=== PATIENT | female | born 1990 | race Caucasian/White ===

== ENCOUNTER 2016-07-03 08:00 | Inpatient (IN) ==
[2016-07-03] MEDS ORDERED: Famotidine 20 MG/2 ML VIAL IVP PRN (08:09)
[2016-07-03] MEDS ORDERED: Naloxone 0.4 MG/ML INJ IVP PRN ×2 (08:09→21:39)
[2016-07-03] MEDS ORDERED: Metoclopramide 10 MG/2 ML VIAL IVP PRN (08:09)
[2016-07-03] MEDS ORDERED: miSOPROStol 25 MCG TABLET VG PRN (08:09)
[2016-07-03] MEDS ORDERED: Ringers Solution, Lactated 1,000 ML IVC SCH (08:15)
--- NOTE | 2016-07-03 09:18 | OB/GYN History & Physical ---
Date of Encounter: 07/03/16 Time of Encounter: 09:15 Assessment and Plan (1) and not yet delivered in third trimester Current visit: Yes Status: Acute (2) 39 weeks gestation of Current visit: Yes Status: Acute (3) Polyhydramnios affecting in third trimester Current visit: Yes Status: Acute (4) Elective induction of labor planned Current visit: Yes Status: Acute We will induce patient with a Betancur catheter and Cytotec and plan is to anticipate vaginal delivery History of Present Illness HPI: Ms. Cannon is a 25 year old female 2 para 1 at 39-3/7 weeks by a 10-3/7 week ultrasound who presented for an induction of labor secondary term with favorable cervix. She has a history of polyhydramnios patient was wanted 2 cm in the office on last examination. course has been unremarkable is not complaining of any leaking of fluid K contractions no vaginal bleeding or discharge. GBS is negative she is Rh+ Past Med Surg Social Fam HX - Past Medical History Medical history: migraine Psychiatric history: no psych history - Past Surgical History Surgical History: no surgical history - Social History Smoking Status: Never smoker Smokeless Tobacco Status: No Alcohol use: none Drug use: none Occupational status: employed Current living situation: Home - Independent Activity Level: Independent ambulation Recent Out of Country Travel Within the Last 8 Weeks: No Exposure or Possible Exposure to Illness During Travel: No - Family History Mother Living Status: Still Living Hx Family Cardiac Disorders: No Hx Family Respiratory Disorders: Yes (asthma) Hx Family Cancer: No Hx Family GI Disorders: No Hx Family Endocrine Disorder: No Hx Family Neuromuscular Disorders: No Hx Family Neurologic Disorders: No Hx Family HEENT Disorders: No Hx Family Autoimmune Disorders: No - Additional Family History Additional family history: Family history noncontributory at this time Obstetrical History - Pregnancies : 2 Para: 1 Term: 1 : 0 Ab's: 0 Livin Medications and Allergies Vit/FA 1 tab PO DAILY 03/07/15 [History] Allergies No Known Allergies Allergy (Verified 07/03/16 08:29) Review of System OB All systems PM: reviewed and no additional remarkable complaints except as stated Exam - Constitutional Constitutional: well developed, no acute distress, average body habitus, moderate distress - HEENT HEENT: PERRL, Mucus Membranes Moist - Neck Neck exam: full ROM - Lungs Respiratory exam: CTAB - Cardiovascular Cardiovascular exam: RRR - Abdomen Abdomen: Present: gravid - Cervix Dilation: 2 Effacement: 80 Station: -3 (Betancur catheter placed within side the cervix 30 mL balloon inflated. During the insertion she was artificially ruptured and clear fluid we will to by mouth Cytotec versus vaginal at this time) Results All other labs normal. - VTE Reasons for not Prescribing Prophylaxis: Treatment not Indicated - Low risk for VTE
[2016-07-03] MEDS ORDERED: miSOPROStol 100 MCG TABLET PO ONE (09:40)
[2016-07-03 09:43] LABS: Basophils % 0.3 %; Eosinophils # 0.1 K/mcL (0.0-0.6); Eosinophils % 0.7 %; Hematocrit 29.5 % (35.3-44.9); Hemoglobin 9.9 g/dL (11.5-15.4); Immature Granulocytes % 0.7 % (0-4); Lymphocytes # 1.6 K/mcL (0.6-4.6); Lymphocytes % 24.1 %; Mean Corpuscular HGB Conc 33.6 g/dL (31.6-35.5); Mean Corpuscular Hemoglobin 29.1 pg (28.0-33.3); Mean Corpuscular Volume 86.8 fL (83.0-100.0); Mean Platelet Volume 10.5 fL (9.4-12.4); Monocytes # 0.5 K/mcL (0.0-1.3); Monocytes % 7.3 %; Neutrophils # 4.5 K/mcL (1.6-8.9); Platelet Count 216 K/mcL (140-400); Red Cell Distribution Width 13.1 % (11.5-14.5); Segmented Neutrophils % 66.9 %
--- NOTE | 2016-07-03 14:19 | OB Labor Progress Note ---
Date of Encounter: 07/03/16 Time of Encounter: 14:15 Labor Progress Note - Subjective Subjective: Patient still tolerating the contractions not that uncomfortable at this time. - Cervix Cervix: 4/90/0 - Heart Tones Heart Tones: heart tones 140s reactive - [place]: Contractions every 4 minutes - Plan Plan: Continue current care and anticipate vaginal delivery
[2016-07-03] MEDS ORDERED: EPHEDrine 50 MG/ML VIAL IVP PRN (16:55)
[2016-07-03] MEDS ORDERED: *HR* FentaNYL (PF) 100 MCG/2 ML VIAL EP ONE (16:55)
[2016-07-03] MEDS ORDERED: Ringers Solution, Lactated 500 ML IVC ONE (16:55)
[2016-07-03] MEDS ORDERED: *HR* Ropivacaine/PF 0.2% 10 ML AMPUL EP ONE (16:55)
--- NOTE | 2016-07-03 16:58 | Anesthesia Evaluation PreOp ---
Date of Encounter: 07/03/16 Time of Encounter: 16:55 - Past History Planned Operation: Labor Epidural Cardiac History: Denies any Significant Hx Pulmonary History: Denies Any Significant HX HARD METALS HAND ENGRAVER History: Denies Any Significant HX Other Medical History: Denies Any Significant HX Alcohol Use: none Drug use: none Medications and Allergies Vit/FA 1 tab PO DAILY 03/07/15 [History] Allergies No Known Allergies Allergy (Verified 07/03/16 08:29) - Meds/Allergy Pre-op Review Medications Reviewed: Yes Allergies Reviewed: Yes Beta Blockers on Current Med List: No Anesthesia Results - Labs 07/03/16 09:14 Anesthesia Exam Height: 1.65m Weight: 73.9kg NPO (# of Hours): >4hr solids Pain Scale: 7 Pain Scale Used: Numeric (1 - 10) - HEENT Pupil (Motor): Pupils equal Mallampati: I Teeth: Normal Oral Opening: Greater than 3 - HARD METALS HAND ENGRAVER LOC: Oriented HARD METALS HAND ENGRAVER Motor: Normal RUE, Normal LUE, Normal RLE, Normal LLE, Normal Face HARD METALS HAND ENGRAVER Sensory: Normal: RUE, LUE, RLE, LLE, Face - Cardiac Rhythm: Regular Murmur: None JVD: No Carotid Bruit: No - Pulmonary Breath Sounds: bilateral Clear Respiratory Effort: Symmetrical Anesthesia Assess/Plan ASA Score: 2 Modified Anthony Scale for Level of Consciousness: Cooperative, oriented, and tranquil Anesthetic Plan: Regional Autologous Blood: Yes Monitoring Plan: Standard Monitors Recovery Plan: Other
[2016-07-03] MEDS ORDERED: *HR* FentaNYL (PF) 100 MCG/2 ML VIAL ONE ×2 (16:59→21:05)
[2016-07-03] MEDS ORDERED: Epidural Premix (fent/bupiv) 110 ML EP ONE (16:59)
[2016-07-03] MEDS ORDERED: *HR* Ropivacaine/PF 0.2% 10 ML AMPUL ONE (16:59)
[2016-07-03] MEDS ORDERED: Epidural Premix (fent/bupiv) 110 ML EP SCH (17:00)
--- NOTE | 2016-07-03 17:29 | Anesthesia Procedures ---
Date of Encounter: 07/03/16 Time of Encounter: 17:05 Procedures: Anesthesia - Epidural/Spinal Patient ID/Chart reviewed: Yes Patient examined: Yes OB Eval: : 2 OB Eval: Hx Para: 1 OB Eval: Contractions: Non-stressed pattern Consent Obtained: Yes Supplemental Oxygen: None/Room Air Site Prep: Aseptic Technique, Sterile prep and drape, 0.5% Chlorhexidine/Alcohol Patient position: upright Local Anesthetic: Lidocaine 1% Amount of Local Anesthetic used: 2 Touhy Needle Gauge: 18 Touhy Needle Depth (cm): 7 Catheter Depth at Skin (cm): 12 Test Dose (1.5% Lido + Epi): Volume given (mls): 4 Test Dose Result: Negative Loading Dose: Fentanyl (mcg): 100 Loading Dose: Other: Ropivacaine 0.2% 10mL Loading Dose Administered: Thru Catheter Infusion Med: 0.125% Bupivacaine w/ 2 mcg/ml Fentanyl Infusion Rate (mls/hr): 14 (Bolus 4mL q15min; max 3/hr) Catheter Secured in Place: Tegaderm, Tape Interspace Used: L2-L3 Loss of Resistance (DHEERAJ): Yes Blood: No CSF: No Paresthesia: No Procedure: x1 attempt. Patient tolerated well and reported increased comfort within 2 contractions of bolus. Vitals + FHT's: VSS and FHR stable throughout. See nursing documentation.
[2016-07-03] MEDS ORDERED: Oxytocin 20 units/ LR 1000 mL 20 UNIT/1,000 ML BAG IVC ONE (17:35)
--- NOTE | 2016-07-03 18:04 | OB Labor Progress Note ---
Date of Encounter: 07/03/16 Time of Encounter: 18:00 Labor Progress Note - Subjective Subjective: Patient is comfortable after her epidural not feeling any discomfort at this time - Cervix Cervix: 4-5/80/-2 - Heart Tones Heart Tones: heart tones 140s reactive - [place]: IUPC placed contractions are every 2-3 minutes irregular - Plan Plan: We will augment with Pitocin and anticipate vaginal delivery
[2016-07-03] MEDS ORDERED: Oxytocin 20 units/ LR 1000 mL 20 UNIT/1,000 ML BAG IVC SCH (18:10)
[2016-07-03] MEDS ORDERED: 0.9 % Sodium Chloride 1,000 ML ONE (19:32)
[2016-07-03] MEDS ORDERED: *HR* Oxytocin 10 UNIT/ML VIAL IM ONE ×2 (21:04→22:03)
[2016-07-03] MEDS ORDERED: Chloroprocaine/PF 20 ML VIAL INFILT ONE (21:04)
[2016-07-03] MEDS ORDERED: ceFAZolin 2,000 MG in D5% in Water (Mini-Bag+) 100 ML IVPB ONE (21:06)
[2016-07-03] MEDS ORDERED: *HR* Morphine Sulfate/PF 5 MG/10 ML AMPUL ONE (21:06)
[2016-07-03] MEDS ORDERED: *HR* Promethazine 25 MG/ML VIAL IVP PRN (21:39)
[2016-07-03] MEDS ORDERED: Ondansetron 4 MG/2 ML VIAL IVP PRN (21:39)
[2016-07-03] MEDS ORDERED: *HR* HYDROmorphone (PF) 1 MG/ML SYRINGE IVP PRN (21:39)
[2016-07-03] MEDS ORDERED: Ringers Solution, Lactated 1,000 ML ONE (22:03)
--- NOTE | 2016-07-03 22:16 | OB/GYN Procedure Note ---
Section - Date of procedure: 07/03/16 Preop diagnosis: other (Intrauterine 39-3/7 weeks, category 2 strip with deep variable decelerations) Post-op diagnosis: same Procedure: primary low transverse Surgeon: Adalberto Andujar Estimated blood loss (cc): 350 Pinsetter Mechanic Automatic: Chepe Talbot ([id number]) Anesthesiologist: Dagoberto Nugent Puff Iron Operator: Orville Evans Anesthesia Type: Epidural section complications: none Disposition: L&D Recovery Room - (s) Infant A Delivery Date: 07/03/16 Infant Delivery Time: 21:31 Presentation: vertex Position: MARIE Route of delivery: other ( section) Gender: Male Viability: Viable Pounds: 7 Ounces: 3 Gram Weight: 3.25 kg at 1 minute: 8 at 5 minutes: 9 Shoulder Dystocia: not encountered Placenta: complete extraction - Narrative Narrative: Patient is a 25-year-old 2 para 1 at 39-3/7 weeks who presented for induction of labor secondary to with favorable cervix. Patient had a history of polyhydramnios recommended we use a Betancur catheter and Cytotec for the induction. During insertion of the Betancur catheter we artificially ruptured her accidentally. Large amounts of clear fluid was identified but left the catheter in place and used by mouth Cytotec. Catheter fell out within an hour patient was linda irregularly and she was augmented with Pitocin. Patient started having deep variable decelerations the Pitocin was turned off and an amnioinfusion was started. Patient got to approximate 5-6 cm and she continued to have very deep decelerations down into the 50s and 60s and baseline dropped to 100s. Because she was still only 5-6 cm section was called. Procedure: Patient was taken the operating room where epidural anesthesia was found be adequate. She was placed in the dorsal supine position with leftward tilt prepped and draped in usual fashion. A timeout was then obtained. A Pfannenstiel incision was then made and the incision was then carried down through the underlying tissue to the fascia was identified. The fascia was nicked in the midline and extended laterally with the Muro scissors. The superior and inferior edges of the fascia grasped tented up and dissected off the rectus muscles. Rectus muscles were then in midline parietal peritoneum was identified tented up and entered sharply. This was extended superiorly and inferiorly with Metzenbaum scissors. Bladder blade was inserted the vesicouterine peritoneum was identified tented up and extended laterally. The bladder flap was created digitally and the lower uterine segment was incised with a scalpel extended laterally with digital manipulation. The 's head was brought out through the incision there was no nuchal cord noted. As we are delivering the shoulders it was noted that the cord was laying right upper against the left arm. The was then fully delivered and the cord was clamped and cut and was handed off to waiting pediatric team. Cord blood was not needed at this time the placenta was manually removed then the uterus was exteriorized and cleaned of all clots and debris. The lower uterine segment was then closed with a 0 Vicryl in a running locking stitch by a 2 layer closure. Good hemostasis was noted the uterus was returned to the abdomen the gutters were cleaned of all clots and debris and copiously irrigated. The fascia was then closed using a #1 stratafix in a running stitch and the skin was closed using a 4-0 Vicryl in a subcuticular manner. All needles laps and sponge counts were correct 3 And she did receive preoperative antibiotics. She was then taken to recovery room and she will be observed 2 hours before being taken the floor.
--- NOTE | 2016-07-04 00:01 | Anesthesia Evaluation Post Op ---
Date of Encounter: 07/04/16 Time of Encounter: 23:55 - Lungs Lungs: Clear Ascult./Percussion - Airway Airway: Non-obstructed - Cardiovascular Regular Rate - Mental Status Mental Status: Alert & Oriented, Answers Appropriately - Pain Pain Scale: 3 Pain Scale used: Numeric (1 - 10) - Nausea Vomiting Nausea Vomiting: Not Present - Hydration Hydration: Tolerates oral liquids - Discharge PostOp Status: Transfer Patient to floor Attestation: Patient alert and communicating. VSS. Plaza4. Meets criteria for floor transfer.
[2016-07-04] MEDS ORDERED: Metoclopramide 10 MG/2 ML VIAL IVP PRN (00:10)
[2016-07-04] MEDS ORDERED: Ringers Solution, Lactated 1,000 ML IVC SCH (00:10)
[2016-07-04] MEDS ORDERED: *HR* HYDROmorphone (PF) 1 MG/ML SYRINGE IVP PRN (00:10)
[2016-07-04] MEDS ORDERED: Simethicone 80 MG TAB.CHEW PO PRN (00:10)
[2016-07-04] MEDS ORDERED: Sennosides 8.6 MG TABLET PO PRN (00:10)
[2016-07-04] MEDS ORDERED: *HR* Morphine 2 MG/ML SYRINGE IVP PRN (00:10)
[2016-07-04] MEDS ORDERED: Ondansetron 4 MG/2 ML VIAL IVP PRN (00:10)
[2016-07-04] MEDS ORDERED: Oxytocin 20 units/ LR 1000 mL 20 UNIT/1,000 ML BAG IV SCH ×2 (00:10)
[2016-07-04 05:41] LABS: Basophils % 0.2 %; Eosinophils % 0.1 %; Hematocrit 30.1 % (35.3-44.9); Hemoglobin 9.8 g/dL (11.5-15.4); Immature Granulocytes % 0.6 % (0-4); Lymphocytes # 1.4 K/mcL (0.6-4.6); Lymphocytes % 12.3 %; Mean Corpuscular HGB Conc 32.6 g/dL (31.6-35.5); Mean Corpuscular Hemoglobin 27.8 pg (28.0-33.3); Mean Corpuscular Volume 85.5 fL (83.0-100.0); Mean Platelet Volume 10.5 fL (9.4-12.4); Monocytes # 0.7 K/mcL (0.0-1.3); Monocytes % 5.6 %; Neutrophils # 9.5 K/mcL (1.6-8.9); Platelet Count 188 K/mcL (140-400); Red Blood Count 3.52 M/mcL (3.82-4.97); Red Cell Distribution Width 12.9 % (11.5-14.5); Segmented Neutrophils % 81.2 %
--- NOTE | 2016-07-04 06:24 | OB/GYN Progress Note ---
Date of Encounter: 07/04/16 Time of Encounter: 06:21 - Assessment and Plan (1) delivery delivered Current Visit: Yes Status: Acute Continue current management plan. Plan on DC tomorrow if meeting milestones. Subjective - Subjective Interval history: Pt states feeling well.Pain well managed on po medication. Patient reports: pain well controlled : doing well, nursing well Objective - Vital Signs Latest vital signs: Vital Signs Temp Pulse Resp BP Pulse Ox 07/04/16 04:08 98.7 F 96 18 118/74 98 07/04/16 02:15 98.1 F 84 18 124/82 99 07/04/16 01:15 98.7 F 93 16 126/81 97 07/04/16 00:44 98.3 F 89 16 129/87 98 07/04/16 00:15 98.2 F 87 18 123/74 97 Intake and Output 07/03/16 07/03/16 07/04/16 15:59 23:59 07:59 Intake Total 2300 / 2300 Output Total 450 / 450 400 / 400 Balance 1850 / 1850 -400 / -400 Intake: Intake, Autotransfusion 2300 / 2300 Amount Output: Estimated Blood Loss 350 / 350 Catheter 100 / 100 400 / 400 Other: Weight 73.936 kg 72.2 kg Patient Weight 07/04/16 23:59 Weight 72.2 kg - Exam Lungs: bilateral: normal Chest: Normal S1, Normal S2 Extremities: Present: normal Abdomen: Present: normal appearance, soft Incision: Present: dressed Uterus: Present: normal, firm - Labs Labs: Laboratory Results - last 24 hr 07/03/16 07/03/16 07/04/16 08:38 09:14 05:03 WBC 6.7 11.7 H D RBC 3.40 L 3.52 L Hgb 9.9 L 9.8 L Hct 29.5 L 30.1 L MCV 86.8 85.5 MCH 29.1 27.8 L MCHC 33.6 32.6 RDW 13.1 12.9 Plt Count 216 188 MPV 10.5 10.5 Immature Gran % 0.7 0.6 Seg Neutrophils % 66.9 81.2 Lymphocytes % 24.1 12.3 Monocytes % 7.3 5.6 Eosinophils % 0.7 0.1 Basophils % 0.3 0.2 Neutrophils # 4.5 9.5 H Lymphocytes # 1.6 1.4 Monocytes # 0.5 0.7 Eosinophils # 0.1 0.0 Basophils # 0.0 0.0 Immature Plt Fraction 3.0 Specimen Rejected Clotted
[2016-07-04] MEDS ORDERED: NON-FORMULARY MEDICATION 1 EACH EACH (Prenatal Vit/Fa 1 TAB) PO SCH (09:00)
[2016-07-04] MEDS: *HR* OxyCODONE/APAP 5/325 TABLET PO PRN ×2 (10:34→22:01)
[2016-07-04] MEDS: Prenatal Vit/FA 1 EACH TABLET PO SCH (10:34)
[2016-07-04] MEDS: Ibuprofen 600 MG TABLET PO PRN ×2 (14:59→23:15)
[2016-07-05] MEDS ORDERED: *HR* OxyCODONE/APAP 5/325 TABLET PO ONE (00:54)
[2016-07-05] MEDS: Ibuprofen 600 MG TABLET PO PRN (05:26)
--- NOTE | 2016-07-05 09:11 | Discharge Summary ---
Date of Encounter: 07/05/16 Time of Encounter: 09:09 - Discharge Diagnosis (1) delivery delivered Priority: Primary Status: Acute Comments: Pt states feeling okay this morning. Pain managed with po pain medication. In agreement with discharge today. +flatus -BM (2) Gestational hypertension w/o significant proteinuria in 3rd trimester Priority: Secondary Status: Acute - Discharge Medications Prescriptions: Ibuprofen [Motrin] 600 mg PO Q6HR PRN #60 tablet PRN Reason: Cramping OxyCODONE/APAP 5/325 [Percocet 5/325 MG] 1 each PO Q6HR PRN #30 tablet PRN Reason: Moderate pain 4-6 Docusate [Colace] 100 mg PO BID #60 capsule Ferrous Sulfate 325 mg PO DAILY #60 tablet Home Medications: Vit/FA 1 tab PO DAILY 03/07/15 [History] Docusate [Colace] 100 mg PO BID #60 capsule 07/05/16 [Rx] Ferrous Sulfate 325 mg PO DAILY #60 tablet 07/05/16 [Rx] Ibuprofen [Motrin] 600 mg PO Q6HR PRN #60 tablet 07/05/16 [Rx] OxyCODONE/APAP 5/325 [Percocet 5/325 MG] 1 each PO Q6HR PRN #30 tablet 07/05/16 [Rx] Allergies/Adverse Reactions: Allergies No Known Allergies Allergy (Verified 07/03/16 08:29) Data Procedures and tests throughout hospitalization: Laboratory Tests 07/03/16 07/03/16 07/04/16 08:38 09:14 05:03 WBC 6.7 11.7 H D RBC 3.40 L 3.52 L Hgb 9.9 L 9.8 L Hct 29.5 L 30.1 L MCV 86.8 85.5 MCH 29.1 27.8 L MCHC 33.6 32.6 RDW 13.1 12.9 Plt Count 216 188 MPV 10.5 10.5 Immature Gran % 0.7 0.6 Seg Neutrophils % 66.9 81.2 Lymphocytes % 24.1 12.3 Monocytes % 7.3 5.6 Eosinophils % 0.7 0.1 Basophils % 0.3 0.2 Neutrophils # 4.5 9.5 H Lymphocytes # 1.6 1.4 Monocytes # 0.5 0.7 Eosinophils # 0.1 0.0 Basophils # 0.0 0.0 Immature Plt Fraction 3.0 Specimen Rejected Clotted Date of admission: 07/03/16 08:08 Primary care physician: Krystle Mcbride CNP Discharging clinician: Dilma Saunders Anticipated date of discharge: 07/05/16 - Patient Status Disposition: Home, Self-Care Condition: Good Functional capacity at discharge: independent ambulation Overall status at discharge: patient is back to baseline - Discharge Instructions Follow Up With: Adalberto Andujar DO [Partnered Physician] - (July 20, 2016 @ 9:55 am) Krystle Mcbride, EMMA [Primary Care Provider] - - Diet and Activity Activity: resume usual activities as tolerated Diet: regular diet Hospital Course Reason for admission: induction of labor Delivery: section Episiotomy: none Laceration: none Other procedures: none complications: none Discharge diagnosis: IUP at term delivered [place] baby: male Hospital course: Section - Date of procedure: 07/03/16 Preop diagnosis: other (Intrauterine 39-3/7 weeks, category 2 strip with deep variable decelerations) Post-op diagnosis: same Procedure: primary low transverse Surgeon: Adalberto Andujar Estimated blood loss (cc): 350 Cook 3 Pastry: Chepe Talbot ([id number]) Anesthesiologist: Dagoberto Nugent Manager Fashion: Orville Evans Anesthesia Type: Epidural section complications: none Disposition: L&D Recovery Room - (s) Infant A Delivery Date: 07/03/16 Infant Delivery Time: 21:31 Presentation: vertex Position: MARIE Route of delivery: other ( section) Gender: Male Viability: Viable Pounds: 7 Ounces: 3 Gram Weight: 3.25 kg at 1 minute: 8 at 5 minutes: 9 Shoulder Dystocia: not encountered Placenta: complete extraction Stable in and appropriate for discharge OARRS reviewed. Time Attestation: Total time spent providing and/or coordinating discharge services: Time Spent: Less than 30 minutes - VTE Reasons for not Prescribing Prophylaxis: Treatment not Indicated - Low risk for VTE Documentation of Mechanical Device: Intermittent pneumatic compression device Exam - Constitutional Vitals: Temp Pulse Resp BP Pulse Ox 97.8 F 83 16 117/77 96 07/04/16 22:00 07/04/16 22:00 07/04/16 22:06 07/04/16 22:00 07/04/16 22:00 General appearance IM: A&O X 3, pleasant, no acute distress - Respiratory Respiratory exam: Present: CTAB - Cardiovascular Cardiovascular exam IM: Present: RRR, +S1, +S2 - GI/Abdominal Incision: normal (steristrips in place), intact - Uterine Tone: Firm - Extremities Exam Extremities exam IM: Present: normal inspection - Neurological Exam Neurological exam: oriented X3 - Psychiatric Additional comments: reoprts good mood
[2016-07-05] MEDS: Prenatal Vit/FA 1 EACH TABLET PO SCH (09:16)
[2016-07-05 09:30] VITALS: BP 118/77
[2016-07-05] MEDS: *HR* OxyCODONE/APAP 5/325 TABLET PO PRN (16:45)
== END 2016-07-05 19:15 | disposition home or self-care (01) | DRG 766 ==
LOC: 1NENULAB 08:08 → 1NENUOBS 07-04 00:10
PROVIDERS: ADMIT Obstetrics & Gynecology; ATTEND Obstetrics & Gynecology

== ENCOUNTER 2019-02-10 06:00 | Inpatient (IN) ==
[2019-02-10] MEDS ORDERED: *HR* Nalbuphine 10 MG/ML AMPUL IVP PRN (06:12)
[2019-02-10] MEDS ORDERED: Famotidine 20 MG/2 ML VIAL IVP PRN (06:12)
[2019-02-10] MEDS ORDERED: Lidocaine 1% 20 ML MDV INFILT PRN (06:12)
[2019-02-10] MEDS ORDERED: Metoclopramide 10 MG/2 ML VIAL IVP PRN (06:12)
[2019-02-10] MEDS ORDERED: Naloxone 0.4 MG/ML INJ IVP PRN (06:12)
[2019-02-10] MEDS ORDERED: Ringers Solution, Lactated 1,000 ML IVC SCH (06:15)
[2019-02-10] MEDS ORDERED: Epidural Premix (fent/bupiv) 110 ML EP SCH (06:45)
[2019-02-10 06:58] LABS: Basophils % 0.3 %; Eosinophils # 0.1 K/mcL (0.0-0.6); Eosinophils % 1.3 %; Hematocrit 30.7 % (35.3-44.9); Hemoglobin 10.1 g/dL (11.5-15.4); Immature Granulocytes % 0.6 % (0-4); Lymphocytes % 28.7 %; Mean Corpuscular HGB Conc 32.9 g/dL (31.6-35.5); Mean Corpuscular Hemoglobin 29.2 pg (28.0-33.3); Mean Corpuscular Volume 88.7 fL (83.0-100.0); Mean Platelet Volume 10.5 fL (9.4-12.4); Monocytes # 0.5 K/mcL (0.0-1.3); Monocytes % 6.8 %; Neutrophils # 4.4 K/mcL (1.6-8.9); Platelet Count 207 K/mcL (140-400); Red Blood Count 3.46 M/mcL (3.82-4.97); Red Cell Distribution Width 13.2 % (11.5-14.5); Segmented Neutrophils % 62.3 %; White Blood Count 7.1 K/mcL (4.3-11.1)
[2019-02-10] MEDS ORDERED: Oxytocin 20 units/ LR 1000 mL 20 UNIT/1,000 ML BAG IVC SCH (07:00)
[2019-02-10] MEDS ORDERED: Lidocaine -MPF 2% 5 ML VIAL ONE (07:49)
[2019-02-10] MEDS ORDERED: *HR* Phenylephrine 10 MG/ML VIAL ONE (07:49)
[2019-02-10 08:29] LABS: Amphetamine Screen,Urine Negative ng/mL (Cutoff=1000); Barbiturate Screen,Urine Negative ng/mL (Cutoff=200); Benzodiazepines Screen,Urine Negative ng/mL (Cutoff=200); Cannabinoid Screen,Urine Negative ng/mL (Cutoff = 50); Cocaine Screen,Urine Negative ng/mL (Cutoff= 300); Opiate Screen,Urine Negative ng/mL (Cutoff=300); Phencyclidine Screen,Urine Negative ng/mL (Cutoff=25)
[2019-02-10 08:57] LABS: Alanine Aminotransferase 9 Units/L (7-52); Aspartate Amino Transferase 15 Units/L (13-39); BUN/Creatinine Ratio 15 (6-26); Blood Urea Nitrogen 11 mg/dL (6-20); Lactate Dehydrogenase 196 Units/L (140-271); Uric Acid 4.3 mg/dL (2.3-7.6); eGFR For African Americans > 60 (> 60); eGFR For Non-African Americans > 60 (> 60)
[2019-02-10 09:00] LABS: Creatinine,Urine 167 mg/dL
[2019-02-10] MEDS ORDERED: *HR* FentaNYL (PF) 100 MCG/2 ML VIAL ONE ×2 (11:14→21:07)
[2019-02-10] MEDS ORDERED: Bupivacaine-MPF 0.25% 10 ML VIAL ONE ×2 (11:14→21:17)
[2019-02-10] MEDS ORDERED: Ondansetron 4 MG/2 ML VIAL ONE (21:14)
[2019-02-11] MEDS ORDERED: Acetaminophen 325 MG TABLET PO PRN (02:32)
[2019-02-11] MEDS ORDERED: Benzocaine/Menthol 56 GM AEROSOL SPRAY TP PRN (02:32)
[2019-02-11] MEDS ORDERED: Lanolin 7 G OINT...G. TP PRN (02:32)
[2019-02-11] MEDS ORDERED: Oxytocin 20 units/ LR 1000 mL 20 UNIT/1,000 ML BAG IVC SCH (02:32)
[2019-02-11] MEDS: Ibuprofen 600 MG TABLET PO PRN ×2 (05:17→20:14)
[2019-02-11 06:04] LABS: Basophils % 0.2 %; Eosinophils % 0.1 %; Hematocrit 30.7 % (35.3-44.9); Hemoglobin 10.8 g/dL (11.5-15.4); Immature Granulocytes % 0.4 % (0-4); Lymphocytes # 1.2 K/mcL (0.6-4.6); Lymphocytes % 7.7 %; Mean Corpuscular HGB Conc 35.2 g/dL (31.6-35.5); Mean Corpuscular Hemoglobin 29.4 pg (28.0-33.3); Mean Corpuscular Volume 83.7 fL (83.0-100.0); Mean Platelet Volume 10.3 fL (9.4-12.4); Monocytes # 0.7 K/mcL (0.0-1.3); Monocytes % 4.5 %; Neutrophils # 13.9 K/mcL (1.6-8.9); Platelet Count 197 K/mcL (140-400); Red Blood Count 3.67 M/mcL (3.82-4.97); Segmented Neutrophils % 87.1 %
[2019-02-11] MEDS: Prenatal Vit/FA 1 EACH TABLET PO SCH (09:07)
[2019-02-12] MEDS: Ibuprofen 600 MG TABLET PO PRN (05:38)
[2019-02-12] MEDS: Prenatal Vit/FA 1 EACH TABLET PO SCH (09:24)
[2019-02-12 11:55] VITALS: BP 139/99
== END 2019-02-12 14:05 | disposition home or self-care (01) | DRG 560 ==
LOC: 1NENULAB 06:10 → 1NENUOBS 02-11 02:21
PROVIDERS: ADMIT Obstetrics & Gynecology; ATTEND Obstetrics & Gynecology

== ENCOUNTER 2021-11-19 11:05 | Inpatient (IN) ==
[~2021-11-19 11:05] MED LIST: *HR* Nalbuphine 10 MG/ML AMPUL IV PRN; Famotidine 20 MG/2 ML VIAL IVP PRN; Lidocaine 1% 20 ML MDV INFILT PRN; Metoclopramide 10 MG/2 ML VIAL IVP PRN; Naloxone 0.4 MG/ML INJ IVP PRN; Ondansetron 4 MG/2 ML VIAL IVP PRN
[2021-11-19] MEDS ORDERED: miSOPROStoL 25 MCG TABLET VG PRN (11:09)
[2021-11-19] MEDS ORDERED: Ringers Solution, Lactated 1,000 ML IVC SCH (11:15)
[2021-11-19 11:39] LABS: Basophils % 0.3 %; Eosinophils % 0.6 %; Hematocrit 30.9 % (35.3-44.9); Hemoglobin 9.9 g/dL (11.5-15.4); Immature Granulocytes % 0.9 % (0-4); Lymphocytes # 1.8 K/mcL (0.6-4.6); Lymphocytes % 26.6 %; Mean Corpuscular Volume 87.3 fL (83.0-100.0); Mean Platelet Volume 10.7 fL (9.4-12.4); Monocytes # 0.5 K/mcL (0.0-1.3); Monocytes % 6.6 %; Neutrophils # 4.5 K/mcL (1.6-8.9); Platelet Count 262 K/mcL (140-400); Red Blood Count 3.54 M/mcL (3.82-4.97); Red Cell Distribution Width 13.3 % (11.5-14.5); White Blood Count 6.8 K/mcL (4.3-11.1)
[2021-11-19 11:45] LABS: Amphetamine Screen,Urine Negative ng/mL (Cutoff=1000); Barbiturate Screen,Urine Negative ng/mL (Cutoff=200); Benzodiazepines Screen,Urine Negative ng/mL (Cutoff=200); Cannabinoid Screen,Urine Negative ng/mL (Cutoff = 50); Cocaine Screen,Urine Negative ng/mL (Cutoff= 300); Creatinine,Urine 120 mg/dL; Opiate Screen,Urine Negative ng/mL (Cutoff=300); Phencyclidine Screen,Urine Negative ng/mL (Cutoff=25); Protein/Creatinine Ratio,Urine 0.18 mg/mg (0.00-0.20)
[2021-11-19] MEDS ORDERED: *HR* Labetalol 20 MG/4 ML SYRINGE IVP ONE ×2 (11:48→11:49)
[2021-11-19] MEDS: Oxytocin 30 UNIT/503 ML BAG IVC SCH (11:53)
[2021-11-19 11:55] LABS: Alanine Aminotransferase 10 Units/L (7-52); Aspartate Amino Transferase 14 Units/L (13-39); BUN/Creatinine Ratio 13 (6-26); Blood Urea Nitrogen 9 mg/dL (6-20); Lactate Dehydrogenase 155 Units/L (140-271); Uric Acid 4.2 mg/dL (2.3-7.6); eGFR For African Americans > 60 (> 60); eGFR For Non-African Americans > 60 (> 60)
[2021-11-19] MEDS ORDERED: EPHEDrine 50 MG/ML VIAL IVP PRN (13:34)
[2021-11-19] MEDS ORDERED: Epidural Premix (fent/bupiv) 110 ML EP SCH (13:45)
[2021-11-19] MEDS ORDERED: Ropivacaine/PF 0.2% 20 ML VIAL ONE (23:46)
[2021-11-19] MEDS ORDERED: Ropivacaine/PF 0.5% 30 ML VIAL ONE (23:46)
[2021-11-20] MEDS: Oxytocin 30 UNIT/503 ML BAG IVC SCH (03:43)
[2021-11-20] MEDS ORDERED: OXYTOCIN/RINGERS LACTATE 10 UNIT/166.6 ML BAG IVC ONE (04:58)
[2021-11-20] MEDS ORDERED: Oxytocin 30 UNIT/503 ML BAG IVC SCH (04:58)
[2021-11-20] MEDS ORDERED: Benzocaine/Menthol 56 GM AEROSOL SPRAY TP PRN (04:58)
[2021-11-20] MEDS ORDERED: Ondansetron ODT 4 MG TAB.RAPDIS SL PRN (04:58)
[2021-11-20] MEDS: Prenatal Vit/FA 1 EACH TABLET PO SCH (08:18)
[2021-11-20] MEDS: Ibuprofen 600 MG TABLET PO SCH ×3 (08:18→17:44)
[2021-11-20] MEDS: Acetaminophen 325 MG TABLET PO SCH ×3 (08:18→16:30)
[2021-11-20] MEDS: Lanolin 7 G OINT...G. TP PRN (08:20)
[2021-11-20 20:53] VITALS: O2SAT 97
[2021-11-21] MEDS: Ibuprofen 600 MG TABLET PO SCH ×2 (00:17→05:22)
[2021-11-21] MEDS: Acetaminophen 325 MG TABLET PO SCH ×2 (00:17→05:21)
[2021-11-21 07:04] VITALS: BP 135/92; PULSE 86; TEMP 98
[2021-11-21] MEDS: Lanolin 7 G OINT...G. TP PRN (08:03)
[2021-11-21] MEDS: Prenatal Vit/FA 1 EACH TABLET PO SCH (08:03)
== END 2021-11-21 12:05 | disposition home or self-care (01) | DRG 560 ==
LOC: 1NENULAB → 1NENUOBS 11-20 04:56
PROVIDERS: ADMIT Obstetrics & Gynecology; ATTEND Obstetrics & Gynecology